=== PATIENT | female | born 1945 | race Caucasian/White ===

== ENCOUNTER → 2017-07-05 | Outpatient (CLI) | payer OTHER ==
--- NOTE | 2017-07-05 15:57 | MAMMOGRAPHY REPORT ---
BILATERAL DIGITAL SCREENING MAMMOGRAM TOMOSYNTHESIS WITH CAD: 07/05/2017 CLINICAL HISTORY: Routine screening. TECHNIQUE: Breast tomosynthesis in addition to standard 2D mammography was performed. Current study was also evaluated with a Computer Aided Detection (CAD) system. COMPARISON: Comparison is made to exams dated: 07/04/2016 mammogram, 06/29/2015 mammogram, 06/28/2014 mammogram, 06/04/2013 mammogram, 05/28/2012 mammogram, and 05/17/2011 mammogram - [facility] enter. BREAST COMPOSITION: There are scattered areas of fibroglandular density in both breasts. FINDINGS: No suspicious masses, calcifications, or areas of architectural distortion are noted in ei ther breast. There has been no significant interval change compared to prior exams. Bilateral asymme tries and bilateral benign-appearing calcifications are not significantly changed. IMPRESSION: ACR BI-RADS CATEGORY 2: BENIGN There is no mammographic evidence of malignancy. A 1 year screening mammogram is recommended. The pa tient will receive written notification of the results. Approximately 10% of breast cancers are not detected with mammography. A negative mammographic report should not delay biopsy if a clinically suggestive mass is present. Buffy Obrien M.D. ah/:07/05/2017 15:02:02 Aircraft Refueler: Chani MARTINEZ(R)(M), [facility] letter sent: Normal 1/2 BI-RADS Code: ACR BI-RADS Category 2: Benign
== END | disposition home or self-care (01) ==
LOC: C.MAMM 09:08
PROVIDERS: ATTEND Family Medicine
DX: Z12.31 Encounter for screening mammogram for malignant neoplasm of breast (principal)

== ENCOUNTER 2025-09-05 01:11 | Observation (INO) ==
--- NOTE | 2025-09-05 01:32 | Emergency Department Note ---
Impression & Plan Ambulatory dysfunction, Collapse ED Provider Note Name: HARMAN HOLLEY Age: 79 Sex: Female Arrives Via: Ambulance Informant: Patient (patient poor historian), ED Provider: Carlito Benjamin MD Chief Complaint: Fall to ground Impression: As per impressions above Medical Decision Making: Pleasant 79-year-old female with mild dementia arrives to the ER few hours after a fall earlier this afternoon. After getting home patient was found on the ground by next to the bed. Unclear if she fell or collapsed. He notes she was sweaty diaphoretic and confused. I am somewhat suspicious this was a syncope or near syncopal event as opposed to another trip and fall however it is difficult to clarify as patient does not remember. No clear evidence of repeat head injury though she has significant bruising around her face and eyes thus I did repeat the CT head. No clear evidence of bleeding however there is a bit of a head read by radiologist. Given neuro intact and she is now back to her baseline with no other acute findings I think it is reasonable to continue watching this. Patient will need to be hospitalized for the syncopal event and thus hospitalist was consulted. Fortunately workup is unremarkable including a normal UA at this time. Triage/Nursing Notes reviewed by Me Differential:Vasovagal event, dehydration, infection, hypoglycemia, electrolyte abnormalities, cardiac sources, intracerebral event, pulmonary embolism, seizure, toxicologic, neurologic, as well as other pathologies. Vital Signs: reviewed and remarkable for no significant abnormalities Interventions: nss bolus Labs:ED labs Reviewed by me and remarkable for no significant abnormalities Imaging:CT head as per my informal interpretation reveals no intracranial hemorrhage or mass effect. Radiologist confirmed this however they state that they cannot rule out bleed in certain area. EKG:As per my interpretation. Indication syncope. Sinus at 71 bpm with a QTc of 465. There is no ischemia. PAC noted. Comparing to EKG of June 17, 2025 there is no significant change. Cardiac/Tele Monitoring: Cardiac Monitoring: An Order was placed for continuous cardiac monitoring. The monitor shows a rate of 70 with a normal sinus rhythm. Consults:Discussed with Dr. Harding of the hospital service who will further evaluate and manage. Plan: Disposition:Hospitalization. Condition: Fair History of Present Illness: 79-year-old female arrives for evaluation after collapsing to the floor. Patient was seen in the ER earlier today after she tripped on a curb and hit her face on the ground. She had CT imaging of the head and neck at that time which was unremarkable she was discharged to home with . Patient was doing well at home however heard a loud thump upstairs. He went and checked on her she was lying on the ground confused and diaphoretic. notes that it took some time before she returned back to her baseline. He does not know if she struck her head on anything during the collapse. Patient does not remember what happened. No other injuries reported. No medication prior to arrival. Due to patient's degree of weakness and inability to stand 911 was called and she was brought to the ER for further evaluation. Past Medical History:See Below Home Medications:See Below Allergies:nkda Vitals:Blood Pressure: 137/69, Pulse 65, RR 18, T 36.6C, O2 98% on RA Physical Exam: GENERAL: Patient is elderly/frail appearing and in no acute distress. HEAD: Large contusions over face and periorbital ecchymosis unable to open left eye without assistance. Abrasions over forehead with bandages. NECK: No ttp nor midline step off RESPIRATORY: No dyspnea. Clear to auscultation and equal bilaterally. CARDIOVASCULAR: Regular rate and rhythm.No murmur appreciated. GASTROINTESTINAL: Abdomen soft, non-tender, no peritonitis. EXTREMITIES: Normal motion all extremities, no cyanosis, no edema. NEUROLOGIC: Alert and oriented. No focal neurologic deficits appreciated SKIN: No rash, no jaundice, no diaphoresis. PSYCH: Appropriate GCS: 15 ED Course: Times/Reassessments: Stable breathing comfortably no distress. Carlito Benjamin MD Past Med/Surg History Problem List (Updated 09/07/25 @ 09:56 by Carlito Benjamin MD) Collapse (Acute) Calcification of brain (Acute) Ambulatory dysfunction (Acute) Fall Fracture of nasal bones (Acute) Forehead contusion (Acute) CHI (closed head injury) (Acute) Right clavicle fracture Encounter for pre-operative examination Medical History Fracture of right clavicle Osteoarthritis cymbalta for this per pt Dementia early stages Hyperlipidemia Surgical History History of cataract surgery right History of section x2 History of hysterectomy History of colonoscopy History of appendectomy History of tooth extraction History of tonsillectomy Family History Mother Colon cancer Social History Smoking Status: Never smoker Second Hand Exposure: No; Do You Dip or Chew Tobacco: No; Hx Alcohol Use: No Hx Substance Use: No Preferred Language: Icelandic Communication Ability: Impaired Java Software Architect Required: No Beliefs That Will Affect Care: None Current Living Situation: Spouse Feels Safe at Home: Yes Assistive Devices: None Allergies Allergies Allergy/AdvReac Type Severity Reaction Status Date / Time No Known Allergies Allergy Verified 06/16/25 16:20 Home Meds Home Medications Medication Instructions Recorded Confirmed atorvastatin 40 mg tablet 40 mg PO QAM 04/06/21 09/05/25 calcium 600 mg (as 1 tab PO PM 04/06/21 09/05/25 carbonate)-vitamin D3 10 mcg (400 unit) tablet (Calcium 600 + D(3)) multivitamin-ferrous 1 tab PO PM 04/06/21 09/05/25 fumarate-folic acid 18 mg-400 mcg tablet (Centrum) omega-3 fatty acids-fish oil 684 1 cap PO PM 04/06/21 09/05/25 mg-1,200 mg capsule,delayed release turmeric 400 mg capsule 400 mg PO PM 04/06/21 09/05/25 donepezil 10 mg tablet 10 mg PO DAILY 06/16/25 09/05/25 duloxetine 60 mg capsule,delayed 60 mg PO QAM 06/16/25 09/05/25 release ipratropium bromide 21 mcg (0.03 2 spray intranasal BID PRN rhinitis 06/16/25 09/05/25 %) nasal spray magnesium oxide 400 mg (241.3 mg 400 mg PO DAILY 06/16/25 09/05/25 magnesium) tablet memantine 10 mg tablet 10 mg PO AMHS 06/16/25 09/05/25 Previous Rx's Medication Instructions Recorded aspirin 81 mg tablet,delayed 81 mg PO BID #60 tabs 06/18/25 release Results & Data (ED) Vital Signs Vital Signs - 24 hr 09/05/25 01:19 09/05/25 01:20 Temperature 36.6 C Temperature Source Oral Pulse Rate 68 65 Respiratory Rate 18 Respiratory Effort / Characteristics Non-Labored Spontaneous Respiratory Depth Normal Blood Pressure 137/69 Blood Pressure Mean 91 Pulse Oximetry 98 Oxygen Delivery Method Room Air Sepsis Recent Fever Within 48 Hours No Sepsis New/Unexplained Change in Mental Status No Sepsis Action Taken by Nursing No Action Required Laboratory Data 09/05/25 01:23 09/05/25 01:23 Lab Results 09/05/25 09/05/25 Range/Units 01:23 01:45 WBC 8.36 (4.8-10.8) K/ul RBC 4.11 L (4.20-5.40) M/uL Hgb 14.3 (12.0-16.0) g/dL Hct 41.9 (37.0-47.0) % MCV 101.9 H (80.0-100.0) fL MCH 34.8 H (25.0-34.0) pg MCHC 34.1 (32.0-36.0) g/dL RDW Std Deviation 43.8 (36.4-46.3) fL RDW Coeff of Hayder 11.7 (11.5-14.5) % Plt Count 191 (130-400) K/uL MPV 9.8 (9.4-12.4) fL Immature Gran % (Auto) 0.2 % Neut % (Auto) 88.3 % Lymph % (Auto) 7.9 % Latimer % (Auto) 3.0 % Eos % (Auto) 0.5 % Baso % (Auto) 0.1 % Neut # (Auto) 7.38 H (1.40-6.50) K/uL Lymph # (Auto) 0.66 L (1.20-3.40) K/uL Latimer # (Auto) 0.25 (0.11-0.59) K/uL Eos # (Auto) 0.04 (0.00-0.50) K/uL Baso # (Auto) 0.01 (0.00-0.20) K/uL Immature Gran # (Auto) 0.02 (0.01-0.20) K/uL Sodium 142 (136-145) mmol/L Potassium 4.1 (3.5-5.1) mmol/L Chloride 103 (98-107) mmol/L Carbon Dioxide 31 (21-32) mmol/L Anion Gap 8 (3-11) BUN 18 (6-23) mg/dl Creatinine 1.08 (0.6-1.2) mg/dl Est Cr Clr Drug Dosing 38.0 ml/min eGFR 52.25 BUN/Creatinine Ratio 16.7 (10-20) Glucose 125 H (70-99(Fasting)) mg/dl Calcium 9.2 (8.6-10.3) mg/dl Magnesium 2.0 (1.7-2.4) mg/dl Iron 30 L (35-150) mcg/dl TIBC 315 (250-450) mcg/dl Transferrin 225 (200-360) mg/dl Transferrin % Sat 10 L (15-50) % Ferritin 29.7 (8-388) ng/ml Total Bilirubin 0.5 (0.2-1.0) mg/dl Direct Bilirubin 0.2 (0-0.2) mg/dl AST 25 (13-39) U/L ALT 16 (7-52) U/L Alkaline Phosphatase 90 (34-104) U/L Troponin I High Sens 6.7 (0-14) pg/ml Total Protein 6.4 (6.0-8.3) gm/dl Albumin 4.1 (3.4-5.0) gm/dl TSH 1.756 (0.300-4.500) uIu/ml Urine Color Dark Yellow Urine Appearance Clear (Clear) Urine pH 6.5 (4.5-7.5) Ur Specific Murdock 1.026 (1.000-1.030) Urine Protein Negative (Negative) Urine Glucose (UA) Negative (Negative) Urine Ketones Trace H (Negative) Urine Blood Negative (Negative) Urine Nitrite Negative (Negative) Urine Bilirubin Negative (Negative) Urine Urobilinogen Negative (Negative) Ur Leukocyte Esterase 1+ H (Negative) Urine WBC (Auto) 6-10 H (0-5) /hpf Urine RBC (Auto) 0-2 (0-2) /hpf U Hyaline Cast (Auto) 0-2 (0-2) /lpf U Epithel Cells (Auto) 0-2 (0-2) /hpf Urine Bacteria (Auto) None Seen (None Seen) Hyaline Casts Present A (None Presnt) /lpf Urine Comment Administered Medications Discontinued Medications Acetaminophen (Acetaminophen 325 Mg Tab) 650 mg PO BID MILIND Stop: 10/05/25 09:14 Last Admin: 09/06/25 10:15 Dose: 650 mg Documented By: kiarra Admin: 09/05/25 19:55 Dose: 650 mg Documented By: Admin: 09/05/25 11:07 Dose: 650 mg Documented By: desean Atorvastatin Calcium (Atorvastatin 40 Mg Tab) 40 mg PO QAM MILIND Stop: 10/05/25 08:59 Last Admin: 09/05/25 09:04 Dose: 40 mg Documented By: desean Admin: 09/05/25 08:59 Dose: 40 mg Documented By: desean Donepezil HCl (Donepezil Hcl 10 Mg Tab) 10 mg PO DAILY MILIND Stop: 10/05/25 08:59 Last Admin: 09/06/25 10:16 Dose: 10 mg Documented By: kiarra Admin: 09/05/25 08:59 Dose: 10 mg Documented By: desean Duloxetine HCl (Duloxetine Hcl 60 Mg Cap) 60 mg PO QAM MILIND Stop: 10/05/25 08:59 Last Admin: 09/06/25 10:16 Dose: 60 mg Documented By: kiarra Admin: 09/05/25 08:57 Dose: 60 mg Documented By: desean Memantine (Memantine Hcl 10 Mg Tab) 10 mg PO AMHS MILIND Stop: 10/05/25 08:59 Last Admin: 09/06/25 10:17 Dose: 10 mg Documented By: kiarra Admin: 09/05/25 19:55 Dose: 10 mg Documented By: Admin: 09/05/25 09:00 Dose: 10 mg Documented By: desean Ondansetron HCl (Ondansetron Inj 2 Mg/Ml 2 Ml Vial) 4 mg IV NOW STA Stop: 09/05/25 02:44 Last Admin: 09/05/25 02:47 Dose: 4 mg Documented By: VAISHNAVI Discharge Plan Visit Data Chief Complaint: Fall Stated Complaint: Fall ED Provider: Carlito Benjamin Discharge Problem: Ambulatory dysfunction, Collapse Patient Disposition: Admitted As Inpatient Condition: Fair Discharge Instructions Interventions: ED Discharge Assessment Last Done: 09/05/25 07:44
[2025-09-05 01:44] LABS: Hematocrit (blood only) 41.9 % (37.0-47.0); Hemoglobin 14.3 g/dL (12.0-16.0); Immature Granulocytes # (auto) 0.02 K/uL (0.01-0.20); Immature Granulocytes % (auto) 0.2 %; Mean Corpuscular Hemoglobin 34.8 pg (25.0-34.0); Mean Corpuscular Volume 101.9 fL (80.0-100.0); Platelet Count 191 K/uL (130-400); RDW Standard Deviation 43.8 fL (36.4-46.3); Red Blood Count 4.11 M/uL (4.20-5.40); White Blood Count 8.36 K/ul (4.8-10.8)
[2025-09-05 02:01] LABS: Alanine Aminotransferase 16.0 U/L (7-52); Albumin Level 4.1 gm/dl (3.4-5.0); Alkaline Phosphatase 90.0 U/L (34-104); Anion Gap 8.0 (3-11); Bilirubin,Total 0.5 mg/dl (0.2-1.0); Blood Urea Nitrogen 18.0 mg/dl (6-23); Calcium 9.2 mg/dl (8.6-10.3); Carbon Dioxide 31.0 mmol/L (21-32); Chloride 103.0 mmol/L (98-107); Creatinine Clr Calc Pharmacy 38.0 ml/min; Glucose 125.0 mg/dl (70-99(Fasting)); Magnesium 2.0 mg/dl (1.7-2.4); Potassium 4.1 mmol/L (3.5-5.1); Sodium 142.0 mmol/L (136-145); Total Protein 6.4 gm/dl (6.0-8.3)
[2025-09-05 02:12] LABS: Appearance Urine Clear (Clear); Bacteria Urine Automated None Seen (None Seen); Cast Urine Automated 0-2 /lpf (0-2); Epithelial Cell Urine Auto 0-2 /hpf (0-2); Glucose Urine UA Negative (Negative); RBC Urine Automated 0-2 /hpf (0-2)
[2025-09-05 02:17] LABS: Thyroid Stimulating Hormone 1.756 uIu/ml (0.300-4.500)
[2025-09-05] MEDS: ONDANSETRON INJ 2 MG/ML 2 ML VIAL IV STA (02:47)
--- NOTE | 2025-09-05 02:51 | XRay Report ---
EXAM: XR chest 1V portable CLINICAL HISTORY: Syncope. TECHNIQUE: An X-ray image of the chest is obtained in AP projection. COMPARISON: 05/06/2025 X-ray. FINDINGS: Pulmonary Parenchyma: Lungs are clear bilaterally. No evidence of consolidation, collapse, or focal opacities. No pulmonary nodules are identified. No evidence of pleural effusion or pleural thickening. Heart and Mediastinum: Stable cardiac size. No mediastinal widening or masses. No hilar or mediastinal lymphadenopathy. Bony Thorax: [id number].[id number] distal third of the right clavicle fracture /OBX.5.1.1OBX.5.1.2 elevation with related bone fragments./OBX.5.1.2/OBX.5.1 Stable degenerative changes of the scanned spine. Soft Tissues: A soft tissue calcification is seen inferior to the tip of the right acromion process. EKG leads are projected over the chest wall. IMPRESSION: 1. No acute cardiopulmonary abnormalities are identified. OBX.5.1OBX.5.1.12. Stable distal third of the right clavicle fracture /OBX.5.1.1OBX.5.1.2 elevation with related bone fragments, which needs clinical correlation./OBX.5.1.2/OBX.5.1 Electronically signed by Reji Burr 09-05-2025 02:50 AM
--- NOTE | 2025-09-05 03:24 | CT Scan Report ---
EXAM: CT head/brain wo con CLINICAL HISTORY: syncope with recent head injury TECHNIQUE: Axial non-contrast CT scan of the brain was performed from the skull base to the high parietal region in axial, sagittal and coronal reconstructions. One of the following dose reduction techniques were utilized for this exam: Automated exposure control, adjustment of the mA and/or kV according to patient size, use of iterative reconstruction. COMPARISON: 09/04/2025 14:24:[address] head/brain. FINDINGS: Brain Parenchyma: Age-appropriate involutional changes seen in the brain as evident by widening of both intra and extra-axial CSF spaces prominent sulci and cerebellar folia. Multifocal multifocal hypodense areas are seen scattered in periventricular subcortical deep white matter representing chronic microvascular ischemic changes. Soft tissue laceration identified in left frontal region. Subtle hyperdensities are identified in the bilateral frontal lobes suggestive of artifacts rather than possible contusions; however, follow-up is advsied Interval improvement in the previously noted laceration in the left frontal region identified with slight improvement in possible bifrontal contusions noted. Visualized brain parenchyma appears unremarkable no evidence of intraparenchymal bleed , subarachnoid subdural extradural hemorrhage noted. A lobulated hyperdense lesion identified along the falx posteriorly approximately measuring It measures 2.5 x 1.5 cm in AP by TR dimensions and is attached to the falx posteriorly showing internal calcification likely suggestive of benign meningioma. Ventricular System: Ventricular system is dilated sulci and basal cisterns are prominent. Ventricles are normal in size and configuration. No evidence of hydrocephalus or ventricular enlargement. Subarachnoid Spaces: No evidence of subarachnoid hemorrhage or extra-axial fluid collections. Cerebellum and Brainstem: No masses, lesions, or areas of abnormal density. Orbits: Normal appearance of the globes, optic nerves, and extraocular muscles. No evidence of orbital masses or abnormal density. Sinuses: Clear paranasal sinuses. No evidence of sinusitis or mucosal thickening. Mastoid Air Cells: Clear mastoid air cells. No evidence of mastoiditis. Skull: Normal skull morphology. IMPRESSION: 1. Soft tissue laceration identified in the left frontal region 2. Subtle hyperdensities are identified in the bilateral frontal lobes suggestive of artifacts rather than possible contusions; however, follow-up is advsied. 3. Interval improvement in the previously noted laceration in the left frontal region. 4. Age-appropriate cerebral atrophy and chronic microvascular ischemia. stable 5. 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 stable. Electronically signed by Reji Burr 09-05-2025 03:24 AM
--- NOTE | 2025-09-05 03:56 | History & Physical Report ---
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 Her evaluation is overall unremarkable with exception of laboratory findings of glucose 125. Imaging reveals chronic changes, known clavicle fracture. #Fall/Ambulatory dysfunction GLF, fell earlier in the day and week as well. Seen earlier day of arrival for fall, dx with bilateral nasal bone fx, no other abnormalities. No symptoms prior to, but the most recent fall was unwitnessed. No LOC or symptoms prior to, pt alert during events per . Suspect this is largely mechanical in nature, but given no recent echo, will ensure no cardiac abnormalities. Admission for such. - CBC elevated MCV/MCH; CMP grossly unremarkable exception glucose 125; TSH + t rop WNL -- pending iron panel, ferritin, vitamin B12, folate - UA with LE + WBC, no bacteria - CXR no acute findings - Head CT with frontal lac, otherwise chronic changes - Fall precautions - Zofran prn N/V - Acetaminophen prn fever/pain - Echo pending - PT/OT consulted - appreciate input + recs #Dementia- Donepezil, memantine - continue; hopeful to get pt back home as soon as possible as to not disrupt their routine given her dementia #HLD- Atorvastatin - continue Dispo: Obs, med/sx VTE Prophylaxis: SCDs This document was dictated utilizing [employer]. Please excuse any grammatical errors that may be secondary to use of this software. 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 Had fall earlier in day, tripped off of curb per . Presenting now after they were at their home and the patinet was going to the bathroom independently. reports that it was approximately 0000. He suspects that she was trying to pull the bathroom door open with instead it should have been pushed. He heard her fall on the ground. No LOC, no seizure like activity. She has no complaints at this time, however she is a poor historian. She has chronic rhinorrhea, this is not new to the injuries today. Pt's reports that she has not been complaining of anything. She was slightly drowsy after the fall, and her skin was clammy but he notes that she is always clammy at night. 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 They have been for 58 years, hopeful to return back to normal routine soon. ED evaluation reveals CBC without gross abnormalities; CMP glucose 125; TSH 1.756; Trop 6.7; UA LE + WBC; CXR no acute findings, with sta ble distal 3rd R clavicle fx; head CT soft tissue lac L frontal region, subtle hyperdensities bilateral frontal lobes (artifact vs contusions), age appropriate cerebral atrophy + chronic microvascular ischemia, posterior falx meningioma seen and stable; EKG sinus rhythm with PACs at 71 bpm.; Provided with Zofran 4 mg IV in ED. Please see Dr. Harding's attestation for adjustments/additions to treatment plan. Allergies Allergy/AdvReac Type Severity Reaction Status Date / Time No Known Allergies Allergy Verified 06/16/25 16:20 Home Medications Medication Instructions Recorded Confirmed Type atorvastatin 40 mg tablet 40 mg PO QAM 04/06/21 09/05/25 History calcium 600 mg (as 1 tab PO PM 04/06/21 09/05/25 History carbonate)-vitamin D3 10 mcg (400 unit) tablet (Calcium 600 + D(3)) multivitamin-ferrous 1 tab PO PM 04/06/21 09/05/25 History fumarate-folic acid 18 mg-400 mcg tablet (Centrum) omega-3 fatty acids-fish oil 684 1 cap PO PM 04/06/21 09/05/25 History mg-1,200 mg capsule,delayed release turmeric 400 mg capsule 400 mg PO PM 04/06/21 09/05/25 History celecoxib 100 mg capsule 100 mg PO AMHS 06/16/25 09/05/25 History donepezil 10 mg tablet 10 mg PO DAILY 06/16/25 09/05/25 History duloxetine 60 mg capsule,delayed 60 mg PO QAM 06/16/25 09/05/25 History release ipratropium bromide 21 mcg (0.03 2 spray intranasal BID PRN rhinitis 06/16/25 09/05/25 History %) nasal spray magnesium oxide 400 mg (241.3 mg 400 mg PO DAILY 06/16/25 09/05/25 History magnesium) tablet memantine 10 mg tablet 10 mg PO AMHS 06/16/25 09/05/25 History aspirin 81 mg tablet,delayed 81 mg PO BID #60 tabs 06/18/25 09/05/25 Rx release amoxicillin 875 mg-potassium 1 tab PO BID 3 days #6 tabs 09/04/25 09/05/25 Rx clavulanate 125 mg tablet Past Med/Surg History Problem List (Updated 09/05/25 @ 14:19 by Scot Vega MD) Calcification of brain (Acute) Ambulatory dysfunction Fall Fracture of nasal bones (Acute) Forehead contusion (Acute) CHI (closed head injury) (Acute) Right clavicle fracture Encounter for pre-operative examination Medical History Fracture of right clavicle Osteoarthritis cymbalta for this per pt Dementia early stages Hyperlipidemia Surgical History History of cataract surgery right History of section x2 History of hysterectomy History of colonoscopy History of appendectomy History of tooth extraction History of tonsillectomy Family History Mother Colon cancer Social History Smoking Status: Never smoker Second Hand Exposure: No; Do You Dip or Chew Tobacco: No; Hx Alcohol Use: No Hx Substance Use: No Preferred Language: Arabic Communication Ability: Effective Testing Specialist Required: No Beliefs That Will Affect Care: None Current Living Situation: Spouse Other Information That Helps Us Care for You: No Feels Safe at Home: Yes Safety Concerns: Feels Safe At This Time Assistive Devices: None Review of Systems Review of Systems: All systems reviewed & are unremarkable except as noted in Subjective Physical Exam Physical Exam: General: No acute distress Skin: Warm and dry, extensive bruising across face to bilateral eyes, with swelling of the L periorbital region, no [place] sign Head: Normocephalic, atraumatic Eyes: PERRL, conjunctivae clear, sclera non-icteric ENT: External ear and ear canal without swelling; nose atraumatic; good dentition, tongue normal appearance, pharynx normal Neck: Supple, no LAD Cardio: RRR, no M/G/R, S1 and S2 normal Resp: No respiratory distress, Lungs CTA in all lobes bilaterally, no wheezes, rales, or rhonchi Abdomen: Soft, symmetric, nontender; No masses or hepatosplenomegaly; Bowel sounds normoactive MSK: No deformities; pulses palpable and equal; no edema. Neuro: Awake, alert; Sensation intact bilaterally; CN grossly intact Psych: Appropriate mood, dementia. present in room at time of visit. Results & Data Results & Data Vital Signs (Past 12 Hours) Vital Signs Temp Pulse Resp BP Pulse Ox O2 Del Method 09/05/25 03:00 82 19 128/67 93 09/05/25 02:00 70 15 133/72 100 09/05/25 01:30 63 20 137/69 98 09/05/25 01:20 65 09/05/25 01:19 36.6 C 68 18 137/69 98 Room Air Laboratory Results 09/05/25 09/05/25 01:45 01:23 WBC 8.36 RBC 4.11 L Hgb 14.3 Hct 41.9 MCV 101.9 H MCH 34.8 H MCHC 34.1 RDW Std Deviation 43.8 RDW Coeff of Hayder 11.7 Plt Count 191 MPV 9.8 Immature Gran % (Auto) 0.2 Neut % (Auto) 88.3 Lymph % (Auto) 7.9 [place] % (Auto) 3.0 Eos % (Auto) 0.5 Baso % (Auto) 0.1 Neut # (Auto) 7.38 H Lymph # (Auto) 0.66 L [place] # (Auto) 0.25 Eos # (Auto) 0.04 Baso # (Auto) 0.01 Immature Gran # (Auto) 0.02 Sodium 142 Potassium 4.1 Chloride 103 Carbon Dioxide 31 Anion Gap 8 BUN 18 Creatinine 1.08 Est Cr Clr Drug Dosing 38.0 eGFR 52.25 BUN/Creatinine Ratio 16.7 Glucose 125 H Calcium 9.2 Magnesium 2.0 Total Bilirubin 0.5 Direct Bilirubin 0.2 AST 25 ALT 16 Alkaline Phosphatase 90 Troponin I High Sens 6.7 Total Protein 6.4 Albumin 4.1 TSH 1.756 Urine Color Dark Yellow Urine Appearance Clear Urine pH 6.5 Ur Specific [place] 1.026 Urine Protein Negative Urine Glucose (UA) Negative Urine Ketones Trace H Urine Blood Negative Urine Nitrite Negative Urine Bilirubin Negative Urine Urobilinogen Negative Ur Leukocyte Esterase 1+ H Urine WBC (Auto) 6-10 H Urine RBC (Auto) 0-2 U Hyaline Cast (Auto) 0-2 U Epithel Cells (Auto) 0-2 Urine Bacteria (Auto) None Seen Hyaline Casts Present A Urine Comment Diagnostic Findings Chest X-Ray 09/05/25 01:30 EXAM: XR chest 1V portable CLINICAL HISTORY: Syncope. TECHNIQUE: An X-ray image of the chest is obtained in AP projection. COMPARISON: 05/06/2025 X-ray. FINDINGS: Pulmonary Parenchyma: Lungs are clear bilaterally. No evidence of consolidation, collapse, or focal opacities. No pulmonary nodules are identified. No evidence of pleural effusion or pleural thickening. Heart and Mediastinum: Stable cardiac size. No mediastinal widening or masses. No hilar or mediastinal lymphadenopathy. Bony Thorax: [id number].[id number] distal third of the right clavicle fracture /OBX.5.1.1OBX.5.1.2 elevation with related bone fragments./OBX.5.1.2/OBX.5.1 Stable degenerative changes of the scanned spine. Soft Tissues: A soft tissue calcification is seen inferior to the tip of the right acromion process. EKG leads are projected over the chest wall. IMPRESSION: 1. No acute cardiopulmonary abnormalities are identified. OBX.5.1OBX.5.1.12. Stable distal third of the right clavicle fracture /OBX.5.1.1OBX.5.1.2 elevation with related bone fragments, which needs clinical correlation./OBX.5.1.2/OBX.5.1 Electronically signed by Reji Burr 09-05-2025 02:[address] 09/05/25 01:30 EXAM: CT head/brain wo con CLINICAL HISTORY: syncope with recent head injury TECHNIQUE: Axial non-contrast CT scan of the brain was performed from the skull base to the high parietal region in axial, sagittal and coronal reconstructions. One of the following dose reduction techniques were utilized for this exam: Automated exposure control, adjustment of the mA and/or kV according to patient size, use of iterative reconstruction. COMPARISON: 09/04/2025 14:24:[address] head/brain. FINDINGS: Brain Parenchyma: Age-appropriate involutional changes seen in the brain as evident by widening of both intra and extra-axial CSF spaces prominent sulci and cerebellar folia. Multifocal multifocal hypodense areas are seen scattered in periventricular subcortical deep white matter representing chronic microvascular ischemic changes. Soft tissue laceration identified in left frontal region. Subtle hyperdensities are identified in the bilateral frontal lobes suggestive of artifacts rather than possible contusions; however, follow-up is advsied Interval improvement in the previously noted laceration in the left frontal region identified with slight improvement in possible bifrontal contusions noted. Visualized brain parenchyma appears unremarkable no evidence of intraparenchymal bleed , subarachnoid subdural extradural hemorrhage noted. A lobulated hyperdense lesion identified along the falx posteriorly approximately measuring It measures 2.5 x 1.5 cm in AP by TR dimensions and is attached to the falx posteriorly showing internal calcification likely suggestive of benign meningioma. Ventricular System: Ventricular system is dilated sulci and basal cisterns are prominent. Ventricles are normal in size and configuration. No evidence of hydrocephalus or ventricular enlargement. Subarachnoid Spaces: No evidence of subarachnoid hemorrhage or extra-axial fluid collections. Cerebellum and Brainstem: No masses, lesions, or areas of abnormal density. Orbits: Normal appearance of the globes, optic nerves, and extraocular muscles. No evidence of orbital masses or abnormal density. Sinuses: Clear paranasal sinuses. No evidence of sinusitis or mucosal thickening. Mastoid Air Cells: Clear mastoid air cells. No evidence of mastoiditis. Skull: Normal skull morphology. IMPRESSION: 1. Soft tissue laceration identified in the left frontal region 2. Subtle hyperdensities are identified in the bilateral frontal lobes suggestive of artifacts rather than possible contusions; however, follow-up is advsied. 3. Interval improvement in the previously noted laceration in the left frontal region. 4. Age-appropriate cerebral atrophy and chronic microvascular ischemia. stable 5. 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 stable. Electronically signed by Reji Burr 09-05-2025 03:24 AM Medications Administered Zofran 4mg IV ECG Additional Comments: Sinus rhythm with PACs 71 bpm, MI 136, QRS 70, QT/QTc 428/465, PRT 60/51/53 Code Status & VTE Plan Code Status Full Supervising Physician Co-Signing Physician Notes Attending addendum: I have physically seen this patient, have supervised the JIMMY's activities, and agree with the H&P unless as otherwise noted. Assessment and Plan: Patient is a 79-year-old female with past medical history including hyperlipidemia, dementia, and history of falls. She presents to the emergency department after a ground-level fall as she was getting out of bed. She was seen in the emergency department yesterday due to a fall where she had a broken nose. She lives with her at home. Falls/ambulatory dysfunction- Ground-level fall yesterday where she had a broken nose. Ground-level fall this evening again occurring as she was getting out of bed. Lives with her at home. CT head normal except for frontal lac Fall precautions Zofran as needed nausea /vomit Acetaminophen as needed pain or fever The patient will be admitted to telemetry for cardiac rhythm monitoring and a 2-D echocardiogram with Dopplers. Consult PT/OT Need to be assessed for need for ongoing care, with her . Dementia- Continue donepezil and memantine Hyperlipidemia- Continue atorvastatin PG Care Time/CCT Total # of Minutes Spent Total Time Spent with Patient: Total time spent is greater than 50% in coordination of care (as documented) at patient's floor/unit and/or counseling patient: Coding Level of Care Code 30075 INT INP/OBS CARE 3/75MIN Diagnoses Fall W19.XXXA Ambulatory dysfunction R26.2
[2025-09-05] MEDS ORDERED: IPRATROPIUM BROMIDE NASAL SPRAY 0.03% 30 ML PRN (08:29)
[2025-09-05] MEDS ORDERED: ONDANSETRON INJ 2 MG/ML 2 ML VIAL IV PRN (08:29)
[2025-09-05] MEDS ORDERED: POLYETHYLENE (MIRALAX) 17 GM PACK PO PRN (08:29)
[2025-09-05] MEDS: DONEPEZIL HCL 10 MG TAB PO SCH (08:59)
[2025-09-05] MEDS: ATORVASTATIN 40 MG TAB PO SCH (08:59)
[2025-09-05] MEDS: MEMANTINE HCL 10 MG TAB PO SCH (09:00)
[2025-09-05] MEDS ORDERED: ACETAMINOPHEN 325 MG TAB PO PRN (09:02)
[2025-09-05 09:14] LABS: Iron 30.0 mcg/dl (35-150); Total Iron Binding Cap Calc 315.0 mcg/dl (250-450); Transferrin 225.0 mg/dl (200-360); Transferrin (FE) Percent Satur 10.0 % (15-50)
[2025-09-05 09:33] LABS: Ferritin 29.7 ng/ml (8-388)
[2025-09-05 09:57] LABS: Folate (Folic Acid),Ser orPlas > 22.30 ng/ml (>5.38)
[2025-09-05 09:58] LABS: Vitamin B12 494 pg/ml (180-914)
[2025-09-05] MEDS: ACETAMINOPHEN 325 MG TAB PO SCH (11:07)
--- NOTE | 2025-09-05 12:44 | Hospitalist Progress Note ---
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 Her evaluation is overall unremarkable with exception of laboratory findings of glucose 125. Imaging reveals chronic changes, known clavicle fracture. #Fall/Ambulatory dysfunction GLF, fell earlier in the day and week as well. Seen earlier day of arrival for fall, dx with bilateral nasal bone fx, no other abnormalities. No symptoms prior to, but the most recent fall was unwitnessed. No LOC or symptoms prior to, pt alert during events per . Suspect this is largely mechanical in nature, but given no recent echo, will ensure no cardiac abnormalities. Admission for such. - CBC elevated MCV/MCH; CMP grossly unremarkable exception glucose 125; TSH + trop WNL -- - Folate >22.30 ; B12:494 - Iron: 30 ; Transferrin% Sat: 10% ; Ferritin: 29.7 - UA with LE + WBC, no bacteria - CXR no acute findings - Head CT with frontal lac, otherwise chronic changes - Fall precautions - Zofran prn N/V - Acetaminophen prn fever/pain - Echo pending - PT/OT consulted - appreciate input + recs * did not recommend to be d/c home today. Would like patient to be placed in rehab. #Dementia- Donepezil, memantine - continue; hopeful to get pt back home as soon as possible as to not disrupt their routine given her dementia #HLD- Atorvastatin - continue Dispo: Obs, med/sx VTE Prophylaxis: SCDs Admission and Anticipated Discharge Date Admission Date: September 05, 2025 Supervising Physician Co-Signing Physician Notes Attending attestation Pt seen and examined in concert with Dr. Montoya. In agreement with the documented findings as noted in the resident documentation with any exceptions or additions as noted here. Minimally verbal at time of examination but denies uncontrolled pain. Spouse at bedside providing majority of history. Reports her present gait is baseline for her and is shuffling and forward-learning. VS as noted. On examination, S1/S2 nl RRR no MCG. CTAB. Abd NT/ND BS+ve. Mechanical fall with facial injury - PT/OT - recommendation for rehab for safety and strengthening based on mechanics of fall and injury as noted. Agree w/ same. CT head may have microvascular changes vs. contusions and may warrant repeat in follow up or with changes. Echocardiogram as noted. Else see resident documentation as noted. Subjective Patient has a PMH of dementia and was with her today. Patient appears to be doing well but didnt sleep well last night. During the visit saw patient's shuffling gait. reports she goes to the gym twice a week. Review of Systems Review of Systems: as per HPI Physical Exam Constitutional: WD/WN, vitals as above Respiratory: normal respiratory effort, lungs clear to auscultation Cardiovascular: Rate/Rhythm: regular rate and regular rhythm Heart Sounds: normal S1 and normal S2; no murmur Musculoskeletal: Gait: + abnormal gait (shuffling forward leaning gait) Skin: Trauma: + evidence of skin trauma and + raccoon eyes Results & Data Results & Data Vital Signs (Past 12 Hours) Vital Signs Temp Pulse Pulse Resp BP BP Pulse Ox 09/05/25 08:30 09/05/25 07:16 73 18 131/69 94 09/05/25 06:00 147/73 H 96 09/05/25 05:00 76 18 139/77 93 09/05/25 04:00 73 18 126/67 93 09/05/25 03:12 74 21 128/67 95 09/05/25 03:00 82 19 128/67 93 09/05/25 02:00 70 15 133/72 100 09/05/25 01:30 63 20 137/69 98 09/05/25 01:20 65 09/05/25 01:19 36.6 C 68 18 137/69 98 O2 Del Method 09/05/25 08:30 Room Air 09/05/25 07:16 Room Air 09/05/25 06:00 09/05/25 05:00 09/05/25 04:00 09/05/25 03:12 09/05/25 03:00 09/05/25 02:00 09/05/25 01:30 09/05/25 01:20 09/05/25 01:19 Room Air Laboratory Results 09/05/25 09/05/25 09/05/25 Range/Units 08:29 01:45 01:23 WBC 8.36 (4.8-10.8) K/ul RBC 4.11 L (4.20-5.40) M/uL Hgb 14.3 (12.0-16.0) g/dL Hct 41.9 (37.0-47.0) % MCV 101.9 H (80.0-100.0) fL MCH 34.8 H (25.0-34.0) pg MCHC 34.1 (32.0-36.0) g/dL RDW Std Deviation 43.8 (36.4-46.3) fL RDW Coeff of [place]der 11.7 (11.5-14.5) % Plt Count 191 (130-400) K/uL MPV 9.8 (9.4-12.4) fL Immature Gran % (Auto) 0.2 % Neut % (Auto) 88.3 % Lymph % (Auto) 7.9 % [place] % (Auto) 3.0 % Eos % (Auto) 0.5 % Baso % (Auto) 0.1 % Neut # (Auto) 7.38 H (1.40-6.50) K/uL Lymph # (Auto) 0.66 L (1.20-3.40) K/uL [place] # (Auto) 0.25 (0.11-0.59) K/uL Eos # (Auto) 0.04 (0.00-0.50) K/uL Baso # (Auto) 0.01 (0.00-0.20) K/uL Immature Gran # (Auto) 0.02 (0.01-0.20) K/uL Sodium 142 (136-145) mmol/L Potassium 4.1 (3.5-5.1) mmol/L Chloride 103 (98-107) mmol/L Carbon Dioxide 31 (21-32) mmol/L Anion Gap 8 (3-11) BUN 18 (6-23) mg/dl Creatinine 1.08 (0.6-1.2) mg/dl Est Cr Clr Drug Dosing 38.0 ml/min eGFR 52.25 BUN/Creatinine Ratio 16.7 (10-20) Glucose 125 H (70-99(Fasting)) mg/dl Calcium 9.2 (8.6-10.3) mg/dl Magnesium 2.0 (1.7-2.4) mg/dl Iron 30 L (35-150) mcg/dl TIBC 315 (250-450) mcg/dl Transferrin 225 (200-360) mg/dl Transferrin % Sat 10 L (15-50) % Ferritin 29.7 (8-388) ng/ml Total Bilirubin 0.5 (0.2-1.0) mg/dl Direct Bilirubin 0.2 (0-0.2) mg/dl AST 25 (13-39) U/L ALT 16 (7-52) U/L Alkaline Phosphatase 90 (34-104) U/L Troponin I High Sens 6.7 (0-14) pg/ml Total Protein 6.4 (6.0-8.3) gm/dl Albumin 4.1 (3.4-5.0) gm/dl Vitamin B12 494 (180-914) pg/ml Folate > 22.30 (>5.38) ng/ml TSH 1.756 (0.300-4.500) uIu/ml Urine Color Dark Yellow Urine Appearance Clear (Clear) Urine pH 6.5 (4.5-7.5) Ur Specific [place] 1.026 (1.000-1.030) Urine Protein Negative (Negative) Urine Glucose (UA) Negative (Negative) Urine Ketones Trace H (Negative) Urine Blood Negative (Negative) Urine Nitrite Negative (Negative) Urine Bilirubin Negative (Negative) Urine Urobilinogen Negative (Negative) Ur Leukocyte Esterase 1+ H (Negative) Urine WBC (Auto) 6-10 H (0-5) /hpf Urine RBC (Auto) 0-2 (0-2) /hpf U Hyaline Cast (Auto) 0-2 (0-2) /lpf U Epithel Cells (Auto) 0-2 (0-2) /hpf Urine Bacteria (Auto) None Seen (None Seen) Hyaline Casts Present A (None Presnt) /lpf Urine Comment Diagnostic Findings Chest X-Ray 09/05/25 01:30 EXAM: XR chest 1V portable CLINICAL HISTORY: Syncope. TECHNIQUE: An X-ray image of the chest is obtained in AP projection. COMPARISON: 05/06/2025 X-ray. FINDINGS: Pulmonary Parenchyma: Lungs are clear bilaterally. No evidence of consolidation, collapse, or focal opacities. No pulmonary nodules are identified. No evidence of pleural effusion or pleural thickening. Heart and Mediastinum: Stable cardiac size. No mediastinal widening or masses. No hilar or mediastinal lymphadenopathy. Bony Thorax: [id number].[id number] distal third of the right clavicle fracture /OBX.5.1.1OBX.5.1.2 elevation with related bone fragments./OBX.5.1.2/OBX.5.1 Stable degenerative changes of the scanned spine. Soft Tissues: A soft tissue calcification is seen inferior to the tip of the right acromion process. EKG leads are projected over the chest wall. IMPRESSION: 1. No acute cardiopulmonary abnormalities are identified. OBX.5.1OBX.5.1.12. Stable distal third of the right clavicle fracture /OBX.5.1.1OBX.5.1.2 elevation with related bone fragments, which needs clinical correlation./OBX.5.1.2/OBX.5.1 Electronically signed by Reji Burr 09-05-2025 02:[address] 09/05/25 01:30 EXAM: CT head/brain wo con CLINICAL HISTORY: syncope with recent head injury TECHNIQUE: Axial non-contrast CT scan of the brain was performed from the skull base to the high parietal region in axial, sagittal and coronal reconstructions. One of the following dose reduction techniques were utilized for this exam: Automated exposure control, adjustment of the mA and/or kV according to patient size, use of iterative reconstruction. COMPARISON: 09/04/2025 14:24:[address] head/brain. FINDINGS: Brain Parenchyma: Age-appropriate involutional changes seen in the brain as evident by widening of both intra and extra-axial CSF spaces prominent sulci and cerebellar folia. Multifocal multifocal hypodense areas are seen scattered in periventricular subcortical deep white matter representing chronic microvascular ischemic changes. Soft tissue laceration identified in left frontal region. Subtle hyperdensities are identified in the bilateral frontal lobes suggestive of artifacts rather than possible contusions; however, follow-up is advsied Interval improvement in the previously noted laceration in the left frontal region identified with slight improvement in possible bifrontal contusions noted. Visualized brain parenchyma appears unremarkable no evidence of intraparenchymal bleed , subarachnoid subdural extradural hemorrhage noted. A lobulated hyperdense lesion identified along the falx posteriorly approximately measuring It measures 2.5 x 1.5 cm in AP by TR dimensions and is attached to the falx posteriorly showing internal calcification likely suggestive of benign meningioma. Ventricular System: Ventricular system is dilated sulci and basal cisterns are prominent. Ventricles are normal in size and configuration. No evidence of hydrocephalus or ventricular enlargement. Subarachnoid Spaces: No evidence of subarachnoid hemorrhage or extra-axial fluid collections. Cerebellum and Brainstem: No masses, lesions, or areas of abnormal density. Orbits: Normal appearance of the globes, optic nerves, and extraocular muscles. No evidence of orbital masses or abnormal density. Sinuses: Clear paranasal sinuses. No evidence of sinusitis or mucosal thickening. Mastoid Air Cells: Clear mastoid air cells. No evidence of mastoiditis. Skull: Normal skull morphology. IMPRESSION: 1. Soft tissue laceration identified in the left frontal region 2. Subtle hyperdensities are identified in the bilateral frontal lobes suggestive of artifacts rather than possible contusions; however, follow-up is advsied. 3. Interval improvement in the previously noted laceration in the left frontal region. 4. Age-appropriate cerebral atrophy and chronic microvascular ischemia. stable 5. 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 stable. Electronically signed by Reji Burr 09-05-2025 03:24 AM (2) Fracture of nasal bones Encounter type: initial encounter Fracture type: closed Qualified Code(s): S02.2XXA - Fracture of nasal bones, initial encounter for closed fracture
[2025-09-05 23:12] VITALS: RESP 16
--- NOTE | 2025-09-06 05:31 | XCELERA ---
[id number]
--- NOTE | 2025-09-06 07:17 | Hospitalist Progress Note ---
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 Her evaluation is overall unremarkable with exception of laboratory findings of glucose 125. Imaging reveals chronic changes, known clavicle fracture. #Fall/Ambulatory dysfunction GLF, fell earlier in the day and week as well. Seen earlier day of arrival for fall, dx with bilateral nasal bone fx, no other abnormalities. No symptoms prior to, but the most recent fall was unwitnessed. No LOC or symptoms prior to, pt alert during events per . Suspect this is largely mechanical in nature, but given no recent echo, will ensure no cardiac abnormalities. Admission for such. - CBC elevated MCV/MCH; CMP grossly unremarkable exception glucose 125; TSH + trop WNL -- - Folate >22.30 ; B12:494 - Iron: 30 ; Transferrin% Sat: 10% ; Ferritin: 29.7 - UA with LE + WBC, no bacteria - CXR no acute findings - Head CT with frontal lac, otherwise chronic changes - Fall precautions - Zofran prn N/V - Acetaminophen prn fever/pain - Echo pending - PT/OT consulted - appreciate input + recs * did not recommend to be d/c home today. Would like patient to be placed in rehab. #Dementia- Donepezil, memantine - continue; hopeful to get pt back home as soon as possible as to not disrupt their routine given her dementia #HLD- Atorvastatin - continue Dispo: Obs, med/sx VTE Prophylaxis: SCDs Admission and Anticipated Discharge Date Admission Date: September 05, 2025 Review of Systems Review of Systems: as per HPI Results & Data Results & Data Vital Signs (Past 12 Hours) Vital Signs Temp Pulse Resp BP Pulse Ox O2 Del Method 09/05/25 22:00 36.7 C 69 16 106/72 95 Room Air (2) Fracture of nasal bones Encounter type: initial encounter Fracture type: closed Qualified Code(s): S02.2XXA - Fracture of nasal bones, initial encounter for closed fracture
--- NOTE | 2025-09-06 14:11 | Discharge Summary ---
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 Had fall earlier in day, tripped off of curb per . Presenting now after they were at their home and the patinet was going to the bathroom independently. reports that it was approximately 0000. He suspects that she was trying to pull the bathroom door open with instead it should have been pushed. He heard her fall on the ground. No LOC, no seizure like activity. She has no complaints at this time, however she is a poor historian. She has chronic rhinorrhea, this is not new to the injuries today. Pt's reports that she has not been complaining of anything. She was slightly drowsy after the fall, and her skin was clammy but he notes that she is always clammy at night. 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 They have been for 58 years, hopeful to return back to normal routine soon. ED evaluation reveals CBC without gross abnormalities; CMP glucose 125; TSH 1.756; Trop 6.7; UA LE + WBC; CXR no acute findings, with stable distal 3rd R clavicle fx; head CT soft tissue lac L frontal region, subtle hyperdensities bilateral frontal lobes (artifact vs contusions), age appropriate cerebral atrophy + chronic microvascular ischemia, posterior falx meningioma seen and stable; EKG sinus rhythm with PACs at 71 bpm.; Provided with Zofran 4 mg IV in ED. Please see Dr. Harding's attestation for adjustments/additions to treatment plan. Principal Diagnosis Falls, Ambulatory Dysfunction Discharge Exam GA: well groomed, well nourished in no apparent distress. HEENT: head normocephalic, atraumatic. EOMI. periorbital ecchymosis RESP: vesicular breath sounds b/l. No wheezes, rhonchi, or rales CARDIOVASCULAR: S1 and S2 heard. No murmurs, rubs, or gallops. Radial pulses 2+ RRR GI: no tenderness or masses felt to palpation MSK: no gross abnormalities or focal deficits SKIN: warm, dry, no edema PSYCH: appropriate mood and affect NEURO: no focal deficits. 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 Her evaluation is overall unremarkable with exception of laboratory findings of glucose 125. Imaging reveals chronic changes, known clavicle fracture. #Fall/Ambulatory dysfunction GLF, fell earlier in the day and week as well. Seen earlier day of arrival for fall, dx with bilateral nasal bone fx, no other abnormalities. No symptoms prior to, but the most recent fall was unwitnessed. No LOC or symptoms prior to, pt alert during events per . Suspect this is largely mechanical in nature, but given no recent echo, will ensure no cardiac abnormalities. Admission for such. - CBC elevated MCV/MCH; CMP grossly unremarkable exception glucose 125; TSH + trop WNL -- - Folate >22.30 ; B12:494 - Iron: 30 ; Transferrin% Sat: 10% ; Ferritin: 29.7 - UA with LE + WBC, no bacteria - CXR no acute findings - Head CT with frontal lac, otherwise chronic changes, repeat head CT 09/06 unchanged - Echo unremarkable - recommend discharge to rehab center or SNF for PT/OT; pt and spouse not agreeable - home PT/OT to prevent deconditioning and balance training - encourage ambulation with walker #Dementia- Donepezil, memantine - continue #HLD- Atorvastatin - continue Total Time Total Time Spent Total Time Spent (In Minutes): please see attending attestation Discharge Plan Discharge Items Patient Disposition: Home - Home Health Services Reason For Visit: FALL, AMB DYSFUNCTION Discharge Diagnosis: Fall, Amb dysfunction Activity: Per Instructions section Non-emergency contact: Primary Care Provider Call non-emergency contact if: your symptoms worsen, your pain is not controlled, your temperature is above 101 and your wound has increased redness Follow-up/Referrals: Galdino Rojo DO [Primary Care Provider] - 12/23/25 2:00 pm (Arrive by 1:45 Off [address] exit) Diet: Regular Addtl Attending Provider Instructions: You were in the hospital for a second fall that was unwitnessed while you were in your home while trying to go to the bathroom. We provided imaging of your head and chest which came back showing no bleeding. An imaging study was also done on your heart as well, which showed no life threatening concerns. However, we noticed that your shuffling forward leaning gait was dangerous for y ou so we had physical therapy and occupational therapy come see you. It is recommended you go to a rehab facility to help with your strength and balance before going home. I also recommend that you start to use a walker so you can better balance yourself while walking so you lower the risk of falling. Please follow up with your PCP within the next 1-2 weeks to discuss your hospitalization. The only changes to your medication list is that you should stop Celecoxib. Please return to the ER if you have another unwitnessed fall or believe you need emergent medical attention. Pending Studies at Discharge: No Stand-Alone Forms: My [facility], Smoking Cessation Medications and DC Order Prescriptions: Continued atorvastatin 40 mg Tablet 40 mg PO QAM calcium carbonate-vitamin D3 [Calcium 600 + D(3)] 600 mg(1,500mg) -400 unit Tablet 1 tab PO PM omega-3 fatty acids-fish oil 684-1,200 mg Capsule,Delayed Release(Dr/Ec) 1 cap PO PM Centrum 18-400 mg-mcg Tablet 1 tab PO PM turmeric 400 mg Capsule 400 mg PO PM donepezil 10 mg tablet 10 mg PO DAILY Rx Instructions: take with largest meal of the day magnesium oxide 400 mg (241.3 mg magnesium) tablet 400 mg PO DAILY duloxetine 60 mg capsule,delayed release(DR/EC) 60 mg PO QAM memantine 10 mg tablet 10 mg PO [facility] ipratropium bromide 21 mcg (0.03 %) spray,non-aerosol 2 spray INTRANASAL BID PRN (Reason: rhinitis) aspirin 81 mg Tablet,Delayed Release (Dr/Ec) 81 mg PO BID Qty: 60 0RF amoxicillin-pot clavulanate 875-125 mg tablet 1 tab PO BID 3 Days Qty: 6 0RF Discontinued celecoxib 100 mg capsule 100 mg PO AMHS Hold Instructions: Until follow-up appointment with orthopedics. Admission Data Admit Date/Time: 09/05/25 04:27 Attending Provider: Richar Hawkins Admit Provider: Orlando Harding Primary Care Provider: Galdino Rojo Other Providers: Orlando Harding Other Interventions: Discharge Summary Assessment (RN) Last Done: 09/06/25 15:21 Supervising Physician Co-Signing Physician Notes I personally examined the patient and verified all marion points of history and exam, discussed case, and agree with decision making with Dr Sutherland Seems to be doing better. present at the bedside and would very much like to take her home. Discussed risk/benefitshe notes that he has been discussing things with [facility] as well and feels like he can take care of her okay at home. Discussed risk of catastrophic fall and permanent or lethal injurystrongly encouraged close supervision and 100% use of walker. Vitals noted, in general she is awake and alert. Facial bruising noted. Breathing unlabored no accessory muscle use good effort. Skin without rashes pallor or icterus. Neuro without focal deficits. Follow-up head CT reassuring. Dementia/weakness/fall/nasal bone fracturessafe/stable for discharge. Discussed with the need for safety and supervision as well as walker. He expresses understanding and expresses that he will be able to take care of her. Encouraged ongoing PT and OT. He is also in discussion with the [facility] ([facility]NF). for dc. close and ongoing f/u. outpatient PT Resident Activity Tracking Resident Involvement: Resident Care Provided Care Provided: Adult Hospital Medicine
--- NOTE | 2025-09-06 14:55 | CT Scan Report ---
CT SCAN OF THE BRAIN WITHOUT IV CONTRAST CLINICAL HISTORY: Fall. COMPARISON STUDY: CT of the brain dated 09/05/2025. TECHNIQUE: Unenhanced CT scan of the brain is performed from the vertex to the skull base. Images are reviewed in the axial, sagittal, coronal planes. A dose lowering technique was utilized adhering to the principles of ALARA. CT DOSE: 625.8 mGy.cm FINDINGS: Brain parenchyma: There is age-related involutional change noting moderate subcortical and periventri cular microangiopathic disease. There is no hemorrhage, mass effect, or evidence of acute territorial ischemia by CT criteria. A 2.4 cm calcified meningioma along the left posterior falx on image #14 is unchanged. Ricardo-white matter differentiation is preserved. No extra-axial fluid collection is seen. Ventricles, sulci, cisterns: Prominent secondary to involutional change. Intracranial vasculature: There is atherosclerotic calcification of the cavernous carotid and vertebr al arteries. Calvarium: The skeletal structures are osteopenic. No depressed calvarial fracture is seen. Soft tissues: A frontal scalp contusion is again noted. Sinuses and mastoids: The visualized paranasal sinuses are clear. The mastoid air cells are well pneu matized. Orbits: The bony orbits are grossly intact. There are bilateral ocular lens implants. IMPRESSION: 1. There is no hemorrhage, mass effect, or evidence of acute territorial ischemia by CT criteria. 2. A left posterior parafalcine meningioma is unchanged. ACT 112: Negative or not required by law. Electronically signed by: Vincent Shrestha M.D. 09/06/2025 2:54 PM
[2025-09-06 15:11] VITALS: BP 111/68; PULSE 65; TEMP 97.9; O2SAT 97
--- NOTE | 2025-09-06 18:12 | Billing Data ---
Date of Service September 06, 2025 Coding Level of Care Code 04858 IN/OBS DISCH 30 MIN/LESS
--- NOTE | 2025-09-08 06:01 | Electrocardiogram Report ---
Test Reason : Blood Pressure : */* mmHG Vent. Rate : 71 BPM Atrial Rate : 71 BPM P-R Int : 136 ms QRS Dur : 70 ms QT Int : 428 ms P-R-T Axes : 64 51 53 degrees QTcB Int : 465 ms Sinus rhythm with Premature atrial complexes Otherwise normal ECG When compared with ECG of 17-Jun-2025 07:55, Premature atrial complexes are now Present Confirmed by Justice Lux [id number] on 09/08/2025 6:00:39 AM Referred By: REFERRED SELF Confirmed By: Justice Lux
== END 2025-09-06 16:16 | disposition home health service (06) ==
LOC: SUATTDRO → 3W 01:11 → ED 01:11 → SUATTDRO 04:27 → 3W 07:44
DX: Y92.019 Unspecified place in single-family (private) house as the place of occurrence of the external cause; Z79.82 Long term (current) use of aspirin; E78.5 Hyperlipidemia, unspecified; R26.2 Difficulty in walking, not elsewhere classified; W18.30XA Fall on same level, unspecified, initial encounter; S02.2XXA Fracture of nasal bones, initial encounter for closed fracture; Z79.899 Other long term (current) drug therapy; F03.90 Unspecified dementia, unspecified severity, without behavioral disturbance, psychotic disturbance, mood disturbance, and anxiety